=== PATIENT | female | born 1995 | race African-American/Black ===

== ENCOUNTER 2022-05-23 20:40 | Inpatient (IN) | payer SELFPAY ==
[~2022-05-23] VITALS: Ht 170.2 cm; Wt 85.2 kg
[2022-05-23 21:22] LABS: BASOPHILS % 0.5 % (0.0-2.0); EOSINOPHILS % 3.3 % (0.0-5.0); HEMATOCRIT. 39.9 % (36.0-48.0); HEMOGLOBIN. 13.5 g/dL (12.0-16.0); LYMPHOCYTES % 35.2 % (20.0-50.0); MEAN CORPUSCULAR HEMOGLOBIN 30.6 pg (28.0-32.0); MEAN CORPUSCULAR VOLUME 90.3 fL (81.0-99.0); MONOCYTES % 11.6 % (2.0-8.0); NEUTROPHILS % 49.4 % (40.0-76.0); PLATELET 218 x1000/uL (130-400); RED BLOOD CELL COUNT 4.42 mill/uL (4.2-5.4); RED CELL DISTRIBUTION WIDTH 13.3 % (11.6-14.6)
[2022-05-23 21:27] LABS: CHLORIDE 103 mEq/L (98-107)
[2022-05-24] MEDS ORDERED: GUAIFENESIN 200MG/10ML SUGAR FREE UDC PO PRN (02:30)
[2022-05-24] MEDS ORDERED: ASPIRIN 325MG EC TABLET PO NR (02:30)
[2022-05-24] MEDS ORDERED: ONDANSETRON HCL 4MG/2ML INJ IV PRN (02:30)
[2022-05-24] MEDS ORDERED: MAGNESIUM/ALUMINUM HYDROXIDE/SIMETHICONE 30ML UDC PO PRN (02:30)
[2022-05-24] MEDS ORDERED: IPRATROPIUM/ALBUTEROL 0.5-3(2.5)MG/3ML NEB HHN PRN (02:30)
[2022-05-24] MEDS ORDERED: ACETAMINOPHEN 325MG TABLET PO PRN ×2 (02:30)
[2022-05-24] MEDS ORDERED: CLONIDINE 0.1MG TABLET PO PRN (02:30)
[2022-05-24] MEDS ORDERED: DIPHENHYDRAMINE 50MG/ML VIAL IV PRN (02:30)
[2022-05-24] MEDS ORDERED: DOCUSATE SODIUM 100MG CAPSULE PO PRN (02:30)
[2022-05-24 04:30] VITALS: BP 118/72
[2022-05-24] MEDS: BLOOD SUGAR DIAGNOSTIC STRIP TEST SCH ×4 (05:58→20:23)
[2022-05-24] MEDS: INSULIN LISPRO 100 UNITS/ML SUBCUT SCH ×3 (06:19→17:10)
[2022-05-24 08:00] VITALS: BP 121/81
[2022-05-24] MEDS: ASPIRIN 81MG TABLET PO SCH (09:16)
[2022-05-24] MEDS: ENOXAPARIN 40MG/0.4ML SYR SUBCUT SCH (09:16)
[2022-05-24 10:46] LABS: CREATINE KINASE MB FRACTION 1.7 ng/mL (0.5-3.6)
[2022-05-24 12:00] VITALS: BP 128/79
[2022-05-24] MEDS ORDERED: INSU100V51 SQ (12:57)
[2022-05-24] MEDS ORDERED: INSU100I38 SQ (12:57)
[2022-05-24 16:00] VITALS: BP 122/82
[2022-05-24 16:14] LABS: T4 FREE 0.85 ng/dL (0.76-1.46)
[2022-05-24] MEDS: DEXTROSE 50% WATER 50ML SYRINGE IV PRN ×2 (16:43→16:57)
[2022-05-24 18:11] LABS: CHLORIDE 104 mEq/L (98-107)
[2022-05-24 18:25] LABS: CREATINE KINASE 144 IU/L (26-192); CREATINE KINASE MB FRACTION 1.2 ng/mL (0.5-3.6)
[2022-05-24] MEDS ORDERED: IPRATROPIUM BROMIDE (0.02%) 0.5MG/2.5ML NEB HHN PRN (18:30)
[2022-05-24] MEDS ORDERED: ALBUTEROL (0.083%) 2.5MG/3ML NEB HHN PRN (18:30)
[2022-05-24 20:00] VITALS: BP 132/92
[2022-05-24] MEDS ORDERED: FAMOTIDINE 20MG TABLET PO SCH (21:00)
[2022-05-24] MEDS ORDERED: INSULIN LISPRO 100 UNITS/ML SUBCUT SCH (21:00)
[2022-05-24 21:15] LABS: *AMPHETAMINES SCREEN URINE NEGATIVE (NEGATIVE); *BARBITURATES SCREEN URINE NEGATIVE (NEGATIVE); *BENZODIAZEPINES SCREEN URINE NEGATIVE (NEGATIVE); *COCAINE SCREEN URINE NEGATIVE (NEGATIVE); CANNABINOID URINE SCREEN NEGATIVE (NEGATIVE); METHADONE URINE SCREEN NEGATIVE (NEGATIVE); OPIATES URINE SCREEN NEGATIVE (NEGATIVE); PHENCYCLIDINE URINE SCREEN NEGATIVE (NEGATIVE)
[2022-05-24] MEDS: CARVEDILOL 3.125 MG TABLET PO SCH (21:17)
[2022-05-24] MEDS ORDERED: INSULIN GLARGINE 100 UNITS/ML SUBCUT SCH (22:00)
[2022-05-25] VITALS: BP 107/66
[2022-05-25] MEDS ORDERED: BLOOD SUGAR DIAGNOSTIC STRIP TEST SCH (03:00)
[2022-05-25 04:00] VITALS: BP 97/56
[2022-05-25] MEDS: BLOOD SUGAR DIAGNOSTIC STRIP TEST SCH ×2 (06:40→11:40)
[2022-05-25] MEDS: INSULIN LISPRO 100 UNITS/ML SUBCUT SCH ×4 (06:40→13:52)
[2022-05-25] MEDS ORDERED: INSULIN LISPRO 100 UNITS/ML SUBCUT SCH (06:40)
[2022-05-25 06:41] LABS: BASOPHILS % 0.4 % (0.0-2.0); EOSINOPHILS % 2.5 % (0.0-5.0); HEMATOCRIT. 40.9 % (36.0-48.0); HEMOGLOBIN. 14.1 g/dL (12.0-16.0); LYMPHOCYTES % 31.7 % (20.0-50.0); MEAN CORPUSCULAR HEMOGLOBIN 30.7 pg (28.0-32.0); MEAN CORPUSCULAR VOLUME 88.9 fL (81.0-99.0); MONOCYTES % 12.2 % (2.0-8.0); NEUTROPHILS % 53.2 % (40.0-76.0); PLATELET 225 x1000/uL (130-400); RED BLOOD CELL COUNT 4.61 mill/uL (4.2-5.4)
[2022-05-25 08:00] VITALS: BP 111/77
[2022-05-25 08:01] LABS: CHLORIDE 104 mEq/L (98-107)
[2022-05-25 08:38] LABS: HDL CHOLESTEROL 79 mg/dL (40-59); LDL CHOLESTEROL 73 mg/dL (5-100); PHOSPHORUS 3.9 mg/dL (2.5-4.9)
[2022-05-25] MEDS: ENOXAPARIN 40MG/0.4ML SYR SUBCUT SCH (09:22)
[2022-05-25] MEDS: ASPIRIN 81MG TABLET PO SCH (09:22)
[2022-05-25] MEDS: CARVEDILOL 3.125 MG TABLET PO SCH (09:23)
[2022-05-25 12:00] VITALS: BP 129/83
[2022-05-25] MEDS ORDERED: ASPI-1160 PO (13:38)
[2022-05-25] MEDS ORDERED: COR3 PO (13:38)
[2022-05-25 15:29] VITALS: BP 129/83
[2022-05-26 09:07] LABS: THYROID PEROXIDASE ANTIBODY > 600 IU/mL (0-34)
== END 2022-05-25 16:20 | disposition home or self-care (01) | DRG 201 ==
LOC: ER 20:40 → MICUSO 05-24 02:38 → 7EST 05-24 04:34
PROVIDERS: ADMIT Internal Medicine; ATTEND Internal Medicine
DX: I47.1 Supraventricular tachycardia (principal); I21.4 Non-ST elevation (NSTEMI) myocardial infarction; E04.9 Nontoxic goiter, unspecified; E66.3 Overweight; E10.9 Type 1 diabetes mellitus without complications; Z79.4 Long term (current) use of insulin
CPT/HCPCS: 36415; 71045; 80048; 80053; 80061; 80305; 82550; 82553; 83036; 83519; 83735; 83880; 84100; 84439; 84443; 84484; 84681; 85025; 85379; 86376; 93005; 93306; 99291; J1650; J1815